=== PATIENT | male | born 1955 | race Caucasian/White ===

== ENCOUNTER 2022-01-03 10:00 | Outpatient (CLI) | payer MEDICARE, BC | END 2022-01-03 10:01 | disposition home or self-care (01) | LOC: LABBT 10:00 | PROVIDERS: ATTEND Ophthalmology Retina Specialist | DX: Z20.822 Contact with and (suspected) exposure to COVID-19 (principal) | CPT/HCPCS: 87811 ==

== ENCOUNTER → 2022-01-04 | Day surgery (SDC) | payer MEDICARE, BC ==
[2022-01-03 10:24] VITALS: BMI 35.3
[~2022-01-04] MED LIST: Bupivacaine 0.75% 10 ML VIAL ONE; CEFAZOLIN 1 GM VIAL ONE; Cyclopentolate 1% Opth Drop 2 ML BOT ONE; Enoxaparin Sodium 30 MG/0.3 ML SYRINGE ONE; Fluorouracil 100 MG, Enoxaparin Sodium 25 MG, EPINEPHrine 0.3 MG in Ophthalmic Irrigati... IRR SCH; Lidocaine 1% PF 5 ML VIAL ONE; Lidocaine 4% PF 5 ML AMP ONE; Maxitrol 0.1% Opth Oint 3.5 GM TUBE ONE; Midazolam HCl 2 mg/2 ml Vial ONE; PROPOFOL 20 ML ONE; PROPOFOL 200 MG/20 ML VIAL ONE; Phenylephrine 2.5% Ophth Soln 5 ML BOT ONE; Triamcinolone 40 MG/ML VIAL ONE; fentaNYL Citrate/PF 100 MCG/2 ML SYRINGE ONE
== END | disposition home or self-care (01) ==
LOC: SDC 05:44
PROVIDERS: ATTEND Ophthalmology Retina Specialist
PROC: 08T53ZZ Resection of Left Vitreous, Percutaneous Approach (ICD-10-PCS; principal; 2022-01-04)
DX: H33.022 Retinal detachment with multiple breaks, left eye (principal); E89.0 Postprocedural hypothyroidism; Z79.82 Long term (current) use of aspirin; Z79.899 Other long term (current) drug therapy; Z88.1 Allergy status to other antibiotic agents; Z98.41 Cataract extraction status, right eye; Z98.42 Cataract extraction status, left eye; Z96.1 Presence of intraocular lens
CPT/HCPCS: 67025; J0171; J0690; J1650; J2250; J2704; J3301; J3490; J9190

== ENCOUNTER 2022-04-19 05:41 | Day surgery (SDC) | payer MEDICARE, BC ==
[2022-04-18 10:28] VITALS: BMI 35.3
[2022-04-19] MEDS ORDERED: Fluorouracil 100 MG, Enoxaparin Sodium 25 MG, EPINEPHrine 0.3 MG in Ophthalmic Irrigati... IRR SCH (06:00)
[2022-04-19] MEDS ORDERED: Cyclopentolate 1% Opth Drop 2 ML BOT ONE (06:07)
[2022-04-19] MEDS ORDERED: Phenylephrine 2.5% Ophth Soln 5 ML BOT ONE (06:07)
[2022-04-19] MEDS ORDERED: Fentanyl 100 MCG/2 ML VIAL ONE (06:36)
[2022-04-19] MEDS ORDERED: Midazolam HCl 2 mg/2 ml Vial ONE (06:36)
[2022-04-19] MEDS ORDERED: PROPOFOL 20 ML ONE (06:36)
[2022-04-19] MEDS ORDERED: Enoxaparin Sodium 30 MG/0.3 ML SYRINGE ONE (07:18)
[2022-04-19] MEDS ORDERED: Lidocaine 1% PF 5 ML VIAL ONE (07:18)
[2022-04-19] MEDS ORDERED: Triamcinolone 40 MG/ML VIAL ONE (07:18)
[2022-04-19] MEDS ORDERED: Maxitrol 0.1% Opth Oint 3.5 GM TUBE ONE (07:18)
[2022-04-19] MEDS ORDERED: Lidocaine 4% PF 5 ML AMP ONE (07:18)
[2022-04-19] MEDS ORDERED: Bupivacaine 0.75% 10 ML VIAL ONE (07:18)
[2022-04-19] MEDS ORDERED: CEFAZOLIN 1 GM VIAL ONE (07:18)
== END 2022-04-19 09:05 | disposition home or self-care (01) ==
LOC: SDC 05:41
PROVIDERS: ATTEND Ophthalmology Retina Specialist
PROC: 08T53ZZ Resection of Left Vitreous, Percutaneous Approach (ICD-10-PCS; principal; 2022-04-19)
DX: H33.42 Traction detachment of retina, left eye (principal); E89.0 Postprocedural hypothyroidism; Z79.82 Long term (current) use of aspirin; Z79.899 Other long term (current) drug therapy; Z88.1 Allergy status to other antibiotic agents; Z98.41 Cataract extraction status, right eye; Z98.42 Cataract extraction status, left eye; Z96.1 Presence of intraocular lens
CPT/HCPCS: C1814; J0171; J0690; J1650; J2250; J2704; J3010; J3301; J3490; J9190

== ENCOUNTER 2022-05-10 05:49 | Day surgery (SDC) | payer MEDICARE, BC ==
[2022-05-09 12:18] VITALS: BMI 34.7
[~2022-05-10 05:49] MED LIST changes: -Bupivacaine 0.75% 10 ML VIAL ONE; -CEFAZOLIN 1 GM VIAL ONE; -Cyclopentolate 1% Opth Drop 2 ML BOT ONE; -Enoxaparin Sodium 30 MG/0.3 ML SYRINGE ONE; +Fluorouracil 100 MG, Enoxaparin 25 MG, EPINEPHrine 0.3 MG in Ophthalmic Irrigation Solu... IRR SCH; -Fluorouracil 100 MG, Enoxaparin Sodium 25 MG, EPINEPHrine 0.3 MG in Ophthalmic Irrigati... IRR SCH; -Lidocaine 1% PF 5 ML VIAL ONE; -Lidocaine 4% PF 5 ML AMP ONE; -Maxitrol 0.1% Opth Oint 3.5 GM TUBE ONE; -Midazolam HCl 2 mg/2 ml Vial ONE; -PROPOFOL 20 ML ONE; -PROPOFOL 200 MG/20 ML VIAL ONE; -Phenylephrine 2.5% Ophth Soln 5 ML BOT ONE; -Triamcinolone 40 MG/ML VIAL ONE; -fentaNYL Citrate/PF 100 MCG/2 ML SYRINGE ONE
[2022-05-10] MEDS ORDERED: Phenylephrine 2.5% Ophth Soln 5 ML BOT ONE (06:06)
[2022-05-10] MEDS ORDERED: Cyclopentolate 1% Opth Drop 2 ML BOT ONE (06:06)
[2022-05-10] MEDS ORDERED: fentaNYL PF 100 MCG/2 ML SYRINGE ONE (06:45)
[2022-05-10] MEDS ORDERED: Famotidine/PF 20 mg/2ml Vial ONE (06:45)
[2022-05-10] MEDS ORDERED: Lidocaine 4% PF 5 ML AMP ONE (06:58)
[2022-05-10] MEDS ORDERED: Bupivacaine 0.75% 10 ML VIAL ONE (06:58)
[2022-05-10] MEDS ORDERED: Triamcinolone 40 MG/ML VIAL ONE (06:58)
[2022-05-10] MEDS ORDERED: CEFAZOLIN 1 GM VIAL ONE (06:58)
[2022-05-10] MEDS ORDERED: Ondansetron PF 4 MG/2 ML Vial ONE (06:58)
[2022-05-10] MEDS ORDERED: PROPOFOL 200 MG/20 ML VIAL ONE (06:58)
[2022-05-10] MEDS ORDERED: Metoclopramide HCl 10 MG/2 ML VIAL ONE (06:58)
[2022-05-10] MEDS ORDERED: Lidocaine 1% PF 5 ML VIAL ONE (06:58)
[2022-05-10] MEDS ORDERED: Maxitrol 0.1% Opth Oint 3.5 GM TUBE ONE (06:58)
== END 2022-05-10 11:33 | disposition home or self-care (01) ==
LOC: SDC 05:49
PROVIDERS: ATTEND Ophthalmology Retina Specialist
PROC: 08T53ZZ Resection of Left Vitreous, Percutaneous Approach (ICD-10-PCS; principal; 2022-05-10)
DX: H33.42 Traction detachment of retina, left eye (principal); E89.0 Postprocedural hypothyroidism; Z79.82 Long term (current) use of aspirin; Z79.899 Other long term (current) drug therapy; Z88.1 Allergy status to other antibiotic agents; Z98.41 Cataract extraction status, right eye; Z98.42 Cataract extraction status, left eye; Z96.1 Presence of intraocular lens
CPT/HCPCS: 67108; C1776 ×3; C1814; J0171; J0690; J1650; J2405; J2704; J2765; J3301; J3490; J9190; S0028

== ENCOUNTER 2022-12-20 06:24 | Day surgery (SDC) | payer MEDICARE, BC ==
[2022-12-19 13:37] VITALS: BMI 36.5
[~2022-12-20 06:24] MED LIST changes: +EPINEPHrine 0.3 MG in Ophthalmic Irrigation Solution 500 ML IRR SCH; -Fluorouracil 100 MG, Enoxaparin 25 MG, EPINEPHrine 0.3 MG in Ophthalmic Irrigation Solu... IRR SCH
[2022-12-20] MEDS ORDERED: PHENYLephrine 2.5% Ophth Soln 15 ml Bottle ONE (06:59)
[2022-12-20] MEDS ORDERED: Cyclopentolate 2% Opth Drop 15 ML BOT ONE (07:00)
[2022-12-20] MEDS ORDERED: fentaNYL 50 mcg/mL 1 mL Vial ONE (07:46)
[2022-12-20] MEDS ORDERED: Midazolam HCl 2 mg/2 ml Vial ONE (07:46)
[2022-12-20] MEDS ORDERED: Maxitrol 0.1% Opth Oint 3.5 GM TUBE ONE (08:04)
[2022-12-20] MEDS ORDERED: CEFAZOLIN 1 GM VIAL ONE (08:04)
[2022-12-20] MEDS ORDERED: PROPOFOL 200 MG/20 ML VIAL ONE (08:04)
[2022-12-20] MEDS ORDERED: Triamcinolone 40 MG/ML VIAL ONE (08:04)
[2022-12-20] MEDS ORDERED: Lidocaine 4% PF 5 ML AMP ONE (08:04)
[2022-12-20] MEDS ORDERED: Lidocaine 1% PF 5 ML VIAL ONE (08:04)
[2022-12-20] MEDS ORDERED: Bupivacaine 0.75% 10 ML VIAL ONE (08:04)
== END 2022-12-20 09:40 | disposition home or self-care (01) ==
LOC: SDC 06:24
PROVIDERS: ATTEND Ophthalmology Retina Specialist
PROC: 08T53ZZ Resection of Left Vitreous, Percutaneous Approach (ICD-10-PCS; principal; 2022-12-20)
PROC: 08NF3ZZ Release Left Retina, Percutaneous Approach (ICD-10-PCS; 2022-12-20)
DX: H43.392 Other vitreous opacities, left eye (principal)
CPT/HCPCS: 67041; J3010; J0171; J0690; J2250; J2704; J3301; J3490